=== PATIENT | female | born 1990 | race Two or more races ===

== ENCOUNTER 2020-07-03 12:56 | Emergency (ER) | payer MEDICAID ==
[~2020-07-03] VITALS: Ht 175.3 cm; Wt 88.5 kg
[2020-07-03 12:56] VITALS: BP 136/84
--- NOTE | 2020-07-03 12:56 | NUR ---
ED Nurse Note: Pt FELIX RA 25 from [facility] c/o body aches x 4 weeks. Pt requesting norco prescription. A+Ox4, speaking in complete sentences. Respirations even and unlabored on room air. Vitals stable as documented.
[2020-07-03] MEDS ORDERED: Tetanus/Diptheria/Pertussis IM ONE (13:30)
--- NOTE | 2020-07-03 13:30 | Emergency Room Report ---
History of Present Illness General Chief Complaint: Pain Source: Patient Present Illness HPI 29-year-old male presents to the emergency department complaining of 6 out of 10 severity bilaterally foot pain x2 days. Patient denies notable trauma or fall. He reports pain that radiates up towards his low back. He reports body aches. He denies fevers or chills. He denies open wounds or bleeding. He denies si gnificant past medical history. Patient reports only past medical history of depression and anxiety for which she is not take any medications for. Patient reports that he needs a prescription for [place] for his pain. Patient denies having a PCP at this time. No other aggravating or relieving factors. Allergies: Coded Allergies: No Known Allergies (Unverified , 07/03/20) COVID-19 Screening Contact w/high risk pt: No Experienced COVID-19 symptoms?: No COVID-19 Testing performed CERAMICS INSTRUCTOR: No Patient History Past Medical History: see triage record Past Surgical History: none Pertinent Family History: none Reviewed Nursing Documentation: PMH: Agreed; PSxH: Agreed Nursing Documentation-PMH History Of Psychiatric Problem: Yes - anxiety, depression Review of Systems All Other Systems: negative except mentioned in HPI Physical Exam Vital Signs Date Time Temp Pulse Resp B/P (MAP) Pulse Ox O2 Delivery O2 Flow Rate FiO2 07/03/20 12:49 98.2 81 14 99 07/03/20 12:49 132/88 (103) Room Air Sp02 EP Interpretation: reviewed, normal General Appearance: no apparent distress, alert, GCS 15, non-toxic, other - after removal of shoes and socks, feet are grossly contaminated. Head: normocephalic, atraumatic Eyes: bilateral eye normal inspection, bilateral eye PERRL ENT: hearing grossly normal, normal voice Neck: full range of motion Respiratory: chest non-tender, lungs clear, normal breath sounds, no respiratory distress, no wheezing, speaking full sentences Cardiovascular #1: regular rate, rhythm, no edema, normal capillary refill Musculoskeletal: normal range of motion, no calf tenderness, gait/station normal, non-tender Neurologic: alert, motor strength/tone normal, oriented x3, sensory intact, responsive, speech normal Psychiatric: judgement/insight normal, other - Pt. is not very cooperative, not easily willing to provide much details to his curent symptoms. Skin: other - feet grossly contaminated bilaterally, no blisters or vesicles, no rash, very scant swelling that is diffuse. Medical Decision Making PA Attestation Dr. Hercules is my supervising Physician whom patient management has been discussed with. Diagnostic Impression: Primary Impression: Foot pain, bilateral Additional Impressions: History of depression History of anxiety ER Course 29-year-old male presents to the emergency department complaining of 6 out of 10 severity bilaterally foot pain x2 days. Patient denies notable trauma or fall. He reports pain that radiates up towards his low back. He reports body aches. He denies fevers or chills. He denies open wounds or bleeding. He denies significant past medical history. Patient reports only past medical history of depression and anxiety for which she is not take any medications for. Patient reports that he needs a prescription for [place] for his pain. Patient denies having a PCP at this time. No other aggravating or relieving factors. Ddx considered but are not limited to Fracture, dislocation, contusion, Sprain/Strain/Spasm, cellulitis, neuropathy, drug-seeking just name a few Vital signs: are WNL, pt. is afebrile H&PE are most consistent with grossly contaminated feet bilaterally with no evidence of open wounds or infection. No calf tenderness. ORDERS: - - soak and clean feet bilaterally- nursing. ED INTERVENTIONS: - Tylenol PO -Tdap IM -- Pt. requests [place] -- d/w pt. that this is not an emergent condition that warrants the rx of strong opiate pain medications. - Feet soaked/ cleaned. d/w pt. for rx of opiates on a non-emergent basis he needs to follow up with a primary care provider. -I do not identify an emergent condition at this time. With current presentation, pt. is stable for close outpatient follow up and conservative treatment. D/w pt. to return promptly to ED with worsening or new symptoms.- Pt. verbalizes' understanding and agreement with proposed treatment plan. DISCHARGE: At this time pt. is stable for d/c to home. Will provide printed patient care instructions, and any necessary prescriptions. Care plan and follow up instructions have been discussed with the patient prior to discharge. Last Vital Signs Date Time Temp Pulse Resp B/P (MAP) Pulse Ox O2 Delivery O2 Flow Rate FiO2 07/03/20 12:56 98.2 79 18 136/84 100 Room Air Status: improved Disposition: HOME, SELF-CARE Condition: Stable Scripts Acetaminophen* (TYLENOL EXTRA STRENGTH*) 500 Mg Tablet 500 MG ORAL Q6H, #20 TAB 0 Refills Prov: Lucinda Perez 07/03/20 [facility]: [facility] Patient Instructions: Medical Screening Exam Additional Instructions: ~ ~ An emergent medical condition has not been identified based on this patients presentation, exam and any necessary testing/imaging. The patient is determined to be stable for outpatient follow-up and management of symptoms by a primary care provider. Take medications as directed. Follow up with a Primary Care Provider in 3-5 days, even if your symptoms have resolved. --Please review list of primary care clinics, if you do not already have a primary care provider Return sooner to ED if new symptoms occur, or current symptoms become worse. - Please note that this Emergency Department Report was dictated using [employer] dredger technology software, occasionally this can lead to erroneous entry secondary to interpretation by the dictation equipment. Lucinda Perez Jul 03, 2020 13:30
--- NOTE | 2020-07-03 13:59 | NUR ---
ED Nurse Note: feet soaked and clean by nurse.
[2020-07-03] MEDS ORDERED: TYLENOL EXTRA500 MG ORAL (14:17)
--- NOTE | 2020-07-03 14:26 | NUR ---
ER DISCHARGE NOTE: Patient is cleared to be discharged per ERPA, pt is aox4, on room air, with stable vital signs. pt was given dc and prescription instructions, pt was able to verbalize understanding, pt id band removed. pt is able to ambulate with steady gait. pt took all belongings.
[2020-07-03 16:21] VITALS: BP 138/86
== END 2020-07-03 14:26 | disposition home or self-care (01) ==
LOC: EDSEX 12:56 → EDBD 12:56 → EDSEX 13:26 → EMR 13:26
DX: M79.672 Pain in left foot (principal); M79.671 Pain in right foot; Z86.59 Personal history of other mental and behavioral disorders
CPT/HCPCS: 90471; 90715; Z7502; 99282